=== PATIENT | male | born 1960 | race Caucasian/White ===

== ENCOUNTER → 2016-09-18 | Outpatient (CLI) | payer OTHER | LOC: FIMAGING 16:56 | PROVIDERS: ATTEND Physician Assistant Surgical | DX: R51 Headache (principal); Z98.890 Other specified postprocedural states ==

== ENCOUNTER → 2018-01-20 | Outpatient (CLI) | payer OTHER ==
[~2018-01-20] MED LIST: GADOBUTROL 10 ML VIAL IVP ONE
== END ==
LOC: FIMAGING 07:03
PROVIDERS: ATTEND Physician Assistant Surgical
DX: I63.50 Cerebral infarction due to unspecified occlusion or stenosis of unspecified cerebral artery (principal); C71.9 Malignant neoplasm of brain, unspecified; D32.9 Benign neoplasm of meninges, unspecified; G91.0 Communicating hydrocephalus
CPT/HCPCS: A9585

== ENCOUNTER → 2019-01-18 | Outpatient (CLI) | payer OTHER | LOC: FIMAGING 09:07 ==

== ENCOUNTER 2019-01-23 10:19 | Emergency (ER) | payer OTHER | END 2019-01-23 13:00 | disposition home or self-care (01) ==

== ENCOUNTER 2019-01-27 10:34 | Emergency (ER) | payer OTHER | END 2019-01-27 12:45 | disposition home or self-care (01) ==